=== PATIENT | female | born 1970 | race Caucasian/White ===

== ENCOUNTER → 2020-07-15 09:33 | Outpatient (BNVA) | payer OTHER, SELFPAY | PROVIDERS: PCP Internal Medicine; Visit Provider Student in an Organized Health Care Education/Training Program ==

== ENCOUNTER 2021-07-28 08:48 | Outpatient (REF) | payer MEDICARE, MEDICAID, SELFPAY ==
--- NOTE | ~2021-07-28 | XR_ITS ---
EXAMINATION: XR LUMBOSACRAL SPINE CLINICAL INFORMATION: Lower back pain. COMPARISON: None. TECHNIQUE: 3 views of the lumbosacral spine. FINDINGS: The lumbar lordosis is maintained. No acute fracture or subluxation. No loss of vertebral body height. Minimal multilevel loss of intervertebral disc height with tiny endplate osteophytes. Bilateral facet arthropathy at L5-S1. No lytic or blastic osseous lesion. Atherosclerotic calcifications. XR/XR lumbar spine 2-3V IMPRESSION: Minimal multilevel degenerative disc disease. Bilateral facet arthropathy at L5-S1.
[2021-07-28 10:55] LABS: Alanine Aminotransferase 21 U/L (0-31); Albumin Level 4.2 g/dL (3.5-5.0); Alkaline Phosphatase 76 U/L (39-117); Anion Gap 11 (12-20); Aspartate Amino Transferase 15 U/L (5-31); Bilirubin Total 0.8 mg/dL (0.0-1.0); Blood Urea Nitrogen 13 mg/dL (9-16); Calcium 9.5 mg/dL (8.4-10.2); Carbon Dioxide 27 mmol/L (22-29); Chloride 106 mmol/L (96-108); Estimated Glomerular Filt Rate > 60; Glucose Random 114 mg/dL (60-115); Potassium 4.8 mmol/L (3.3-5.1); Sodium 139 mmol/L (135-145)
== END 2021-07-28 08:49 | disposition home or self-care (01) ==
LOC: HO.XRAY 08:48
PROVIDERS: PCP Internal Medicine; Visit Provider Nurse Practitioner Family
DX: M79.7 Fibromyalgia (principal); M54.50 Low back pain, unspecified; Z79.899 Other long term (current) drug therapy
CPT/HCPCS: 36415; 72100; 80053; 99212

== ENCOUNTER → 2022-07-28 10:58 | Outpatient (BNVA) | payer MEDICARE, MEDICAID, SELFPAY | PROVIDERS: PCP Internal Medicine; Visit Provider Nurse Practitioner Family | DX: M79.7 Fibromyalgia (principal) | CPT/HCPCS: 99212 ==

== ENCOUNTER → 2022-10-29 07:27 | Outpatient (BNVA) | payer MEDICARE, MEDICAID, SELFPAY | PROVIDERS: PCP Internal Medicine; Visit Provider Nurse Practitioner Family | DX: M79.672 Pain in left foot (principal) | CPT/HCPCS: 36415; 82565; 84520; 84550; 99212 ==

== ENCOUNTER 2022-10-29 08:23 | Outpatient (REF) | payer MEDICARE, MEDICAID, SELFPAY ==
[2022-10-29 11:09] LABS: Blood Urea Nitrogen 12 mg/dL (9-16); Estimated Glomerular Filt Rate > 60; Uric Acid 6.8 mg/dL (2.4-5.7)
== END 2022-10-29 08:24 | disposition home or self-care (01) ==
LOC: HO.10HDL 08:23
PROVIDERS: Visit Provider Nurse Practitioner Family
DX: Z13.89 Encounter for screening for other disorder (principal)
CPT/HCPCS: 36415; 82565; 84520; 84550

== ENCOUNTER 2023-07-28 09:43 | Outpatient (REF) | payer MEDICARE, MEDICAID, SELFPAY ==
[2023-07-28 10:53] LABS: MANUAL DIFF FLAG NO
[2023-07-28 11:08] LABS: Basophils Absolute Auto 0.1 X10*3/uL (0.0-0.2); Basophils Percent Auto 1.6 % (0-2); Eosinophils Absolute Auto 0.1 X10*3/uL (0.0-0.4); Eosinophils Percent Auto 1.8 % (0-4); Hemoglobin 13.8 g/dl (12.0-16.0); Imm Gran Abs Auto 0.02 X10*3/uL (0.00-0.03); Imm Gran Pct Auto 0.4 % (0.0-0.4); Lymphocytes Absolute Auto 1.6 X10*3/uL (1.2-4.9); Lymphocytes Percent Auto 31.3 % (20-40); Mean Corpuscular HGB Conc 33.7 g/dl (31.0-35.0); Mean Corpuscular Hemoglobin 28.9 pg (27.0-33.0); Mean Platelet Volume 9.9 fL (9.4-12.3); Monocytes Absolute Auto 0.4 X10*3/uL (0.1-1.2); Monocytes Percent Auto 7.7 % (2-11); Neutrophils Absolute Auto 2.9 x10*3/uL (2.0-8.3); Neutrophils Percent Auto 57.2 % (45-73); Platelet Count 301 X10*3/uL (160-400); Red Blood Count 4.77 X10*6/uL (4.20-5.50); Red Cell Distribution Width 13.2 % (11.0-16.0)
[2023-07-28 11:55] LABS: Erythrocyte Sedimentation Rate 8 MM/HR (0-20)
[2023-07-28 12:11] LABS: Rheumatoid Factor < 13.0 IU/mL (<15.0)
[2023-07-28 12:13] LABS: Alanine Aminotransferase 37 U/L (0-31); Albumin Level 4.1 g/dL (3.5-5.0); Alkaline Phosphatase 71 U/L (39-117); Anion Gap 12 (12-20); Aspartate Amino Transferase 21 U/L (5-31); Bilirubin Total 0.4 mg/dL (0.0-1.0); Blood Urea Nitrogen 13 mg/dL (9-16); Calcium 8.8 mg/dL (8.4-10.2); Carbon Dioxide 26 mmol/L (22-29); Chloride 107 mmol/L (96-108); Estimated Glomerular Filt Rate > 60; Glucose Random 124 mg/dL (60-115); Potassium 3.6 mmol/L (3.3-5.1); Sodium 141 mmol/L (135-145); Total Protein 6.9 g/dL (6.5-8.0); Uric Acid 5.6 mg/dL (2.4-5.7)
[2023-08-01 15:03] LABS: Cyclic Citrullinated Peptide <16 UNITS
[2023-08-03 13:34] LABS: HLA B27 Negative (Negative)
== END 2023-07-28 09:44 | disposition home or self-care (01) ==
LOC: HO.LAB 09:43
PROVIDERS: Nurse Practitioner Family; PCP Internal Medicine; Visit Provider Nurse Practitioner Family
DX: E79.0 Hyperuricemia without signs of inflammatory arthritis and tophaceous disease (principal); M54.42 Lumbago with sciatica, left side; M54.41 Lumbago with sciatica, right side; G89.29 Other chronic pain; M79.7 Fibromyalgia
CPT/HCPCS: 36415; 80053; 84550; 85025; 85652; 86140; 86200; 86431; 86812; 99212

== ENCOUNTER 2023-07-28 09:43 | Outpatient (AMB) | payer MEDICARE, MEDICAID, SELFPAY ==
--- NOTE | 2023-07-28 09:47 | MHC.OFFVIS ---
Intake Vital Signs 07/28/23 09:48 Height 5 ft 5 in Weight 230 lb 13.184 oz BMI 38.4 BP 132/84 Blood Pressure Location Rt brachial Position Sitting Pulse 85 Pulse Source Pulse Oximeter Temp 97.3 F Temp Source Skin Pulse Oximetry (%) 98 Oxygen Delivery Method Room Air Intake Visit Reasons: fibromyalgia Intake Note: Patient last seen 10/29/22 by Pina, presents today for follow up and test results. 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 Accompanied by: Spouse Allergies amitriptyline Allergy (Intermediate, Verified 07/28/23 09:51) Diarrhea duloxetine [Cymbalta] Allergy (Intermediate, Verified 07/28/23 09:51) throat swelling gabapentin Allergy (Intermediate, Verified 07/28/23 09:51) dizziness methocarbamol Allergy (Intermediate, Verified 07/28/23 09:51) Diarrhea naproxen Allergy (Intermediate, Verified 07/28/23 09:51) diarrhea pregabalin Allergy (Intermediate, Verified 07/28/23 09:51) throat swelling tiagabine Allergy (Intermediate, Verified 07/28/23 09:51) unknown topiramate Allergy (Intermediate, Verified 07/28/23 09:51) hives venlafaxine Allergy (Verified 07/28/23 09:51) unknown animals Allergy (Intermediate, Uncoded 07/28/23 09:51) congestion bushes Allergy (Intermediate, Uncoded 07/28/23 09:51) congestion dust Allergy (Intermediate, Uncoded 07/28/23 09:51) congestion mold Allergy (Intermediate, Uncoded 07/28/23 09:51) congestion plants Allergy (Intermediate, Uncoded 07/28/23 09:51) congestion HPI HPI Comments History of Present Illness Details 51yoF presents for follow-up for fibromyalgia. Last visit was in October 2022. She presents with her who helps with Surinamese translation. Ms. Marrufo continues with all over body pain, neck pain, headaches, nausea and dizziness. She reports she has tried and failed multiple headache medications. She states she had an MRI of her neck and carotid ultrasounds for evaluation of her symptoms, per patient these tests were unremarkable. She reports that she has multiple sessions of PT for vertigo, hip pain and spine pain. She reports head to toe pain and sensitivity due to her fibromyalgia. She admits to some depression surrounding her daily pain but she is not currently following with mental health provider. She states that she tries to walk for exercise but cannot bear the pain. She manages her fibromyalgia with cyclobenzaprine. She previously tried and failed amitriptyline, duloxetine, gabapentin, methocarbamol, Lyrica, topiramate, venlafaxine, and naproxen due to various side effects. Prior Patient reports 2 weeks ago she had pain and swelling at the base of the left great toe x 4 days. She states she woke up with sharp shooting pain, and the base of the great toe was red and warm. Her son presents with pictures today on his cellphone that show erythema on the dorsal and plantar aspect of the foot around the great toe. She presented to the ER at [facility] on 10/21 and was given tylenol and motrin. She states she had an X-ray and is not sure of the results. Her discharge paperwork lists gout versus osteoarthritis as possible diagnosis. She states this is the first time she has experienced these symptoms. Her pain and swelling have since resolved. [facility] Medical History (Updated 07/28/23 @ 10:57 by [facility] Pain in joint involving multiple sites Elevated uric acid in blood Fibromyalgia Surgical History Hx of hysterectomy Family History Sister Uterus cancer HTN (hypertension) Mother HTN (hypertension) Stroke Father HTN (hypertension) Stroke Social History Household Members: Spouse Housing: House Alcohol intake: never Patient Tobacco Use Status: Never used Tobacco Review of Systems Const All systems reviewed & are unremarkable except as noted in HPI and below Physical Exam Vital Signs: Last Vital Signs Temp 97.3 F 07/28/23 09:48 Pulse 85 07/28/23 09:48 BP 132/84 07/28/23 09:48 Pulse Ox 98 07/28/23 09:48 Oxygen Delivery Method Room Air 07/28/23 09:48 BMI result Body Mass Index 38.4 APPEARANCE: Patient in no acute distress EYES: no redness, pupils equal, round and reactive to light, eyelids normal NOSE/SINUS: Airflow through both nares, no nasal discharge, no bleeding THROAT: Oral mucosa moist, no ulcerations HEART: Regular rhythm, S1-S2 heard, no murmurs, rubs or gallops. LUNG: Clear to auscultation, respiratory rate regular and non-labored. EXTREMITIES: No edema, no calf tenderness, normal peripheral pulses. NEURO: Oriented and alert x3. No focal weakness. Gait normal. SKIN: No inflammatory or neoplastic lesions. Normal color and turgor JOINT EXAM:? Lumbar spine: Full range of motion, moderate tenderness to palpation over the lumbar spine. Hands: Normal pain-free range of motion without tenderness, swelling, increased warmth or erythema. Able to make a full fist and has a good senior sql server developer strength. Wrists: Normal pain-free range of motion without tenderness, swelling, increased warmth or erythema. Elbows: Normal pain-free range of motion without tenderness, swelling, increased warmth or erythema. Shoulders: Full range of motion. No tenderness, weakness, swelling, increased warmth or erythema. Hip bursa: Severe tenderness bilaterally to bursa and buttocks Knees: Normal pain-free range of motion without tenderness, swelling, increased warmth or erythema.? There is no effusion or crepitation Ankles: Normal pain-free range of motion without tenderness, swelling, increased warmth or erythema. Feet: LEFT: Normal pain-free range of motion without swelling, increased warmth or erythema. Slight tenderness reported to palpation of the 1st MTP. RIGHT: Normal pain-free range of motion without tenderness, swelling, increased warmth or erythema. Tender points: Tenderness to digital palpation at the occiput, trapezius, second rib. No tenderness to palpation of the lateral epicondyle, knees, greater trochanter and gluteal area bilaterally. Results Reviewed Results Reviewed: 10/29/2022 Uric Acid 6.8 07/28/2021 EXAMINATION: XR LUMBOSACRAL SPINE CLINICAL INFORMATION: Lower back pain. COMPARISON: None. TECHNIQUE: 3 views of the lumbosacral spine. FINDINGS: The lumbar lordosis is maintained. No acute fracture or subluxation. No loss of vertebral body height. Minimal multilevel loss of intervertebral disc height with tiny endplate osteophytes. Bilateral facet arthropathy at L5-S1. No lytic or blastic osseous lesion. Atherosclerotic calcifications. XR/XR lumbar spine 2-3V IMPRESSION: Minimal multilevel degenerative disc disease. Bilateral facet arthropathy at L5-S1. Assessment & Plan Assessment & Plan (1) Chronic back pain: Code(s): M54.9 - Dorsalgia, unspecified; G89.29 - Other chronic pain Qualifiers: Back pain laterality: bilateral Back pain location: low back pain Sciatica laterality: bilateral sciatica Sciatica presence: with sciatica Qualified Code(s): M54.42 - Lumbago with sciatica, left side; M54.41 - Lumbago with sciatica, right side; G89.29 - Other chronic pain (2) Pain in joint involving multiple sites: Code(s): M25.50 - Pain in unspecified joint (3) Elevated uric acid in blood: Code(s): E79.0 - Hyperuricemia without signs of inflammatory arthritis and tophaceous disease (4) Fibromyalgia: Code(s): M79.7 - Fibromyalgia Plan #Bilateral Hip Bursitis: This also interrupts her sleep. She has had previous injections but did not find them helpful. She is currently doing PT. She will consider to call after completing PT for an injection. I encouraged patient that she should continue, at home, the exercises shown at PT . #Elevated Uric acid: At last visit in 10/2022, patient was evaluated for Gout given onset of left foot pain, erythema and warmth at the 1st MTP. The symptoms have resolved and she denies any recurrence since. No evidence of active gout on exam at this time. Her Uric acid was elevated at 6.8. I will recheck to see if it has normalized. 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 Treatment is initiated after 2 gout flares in a 12 month period. She remains on HCTZ. Patient to contact the clinic if she has return of similar joint pain, swelling, erythema or warmth. #FM/Low back Pain: Ms. Marrufo, 52-year-old female patient followed in clinic for fibromyalgia. Serology per previous rheumatology notes from 2017: SILAS, rheumatoid factor, CCP, hepatitis panel were negative. CRP and sed rate normal, TSH normal, complements normal, aldolase normal (these labs are not available to me to review today). Nonetheless I will recheck her inflammatory markers and HLAB27 today. While there is mild OA to the lumbar, it does not match the severity of the pain she expresses and the tenderness experienced on palpation. Previous cortisone injections were also not helpful. On exam patient has fibromyalgia tender points and high sensitivity to touch. She continues to manage her symptoms with cyclobenzaprine which she finds helpful. She previously failed multiple medications as above. 40 minutes spent reviewing chart, evaluating patient, discussing treatment options and documenting. Orders: Orders Erythrocyte Sedimentation Rate 07/28/23 E79.0 - Hyperuricemia without signs of inflammatory arthritis and tophaceous disease HLA B27 07/28/23 M54.9 - Dorsalgia, unspecified, G89.29 - Other chronic pain Cyclic Citrullinated Peptide 07/28/23 M25.50 - Pain in unspecified joint Complete Blood Count Auto Diff 07/28/23 E79.0 - Hyperuricemia without signs of inflammatory arthritis and tophaceous disease Comprehensive Met. Panel 07/28/23 E79.0 - Hyperuricemia without signs of inflammatory arthritis and tophaceous disease C Reactive Protein 07/28/23 E79.0 - Hyperuricemia without signs of inflammatory arthritis and tophaceous disease Uric Acid 07/28/23 E79.0 - Hyperuricemia without signs of inflammatory arthritis and tophaceous disease Rheumatoid Factor 07/28/23 M25.50 - Pain in unspecified joint Coding Level of Care Code Est Pt Level 4 (90806) Diagnoses Chronic bilateral low back pain with bilateral sciatica M54.42; M54.41; G89.29 Back pain laterality: bilateral Back pain location: low back pain Sciatica laterality: bilateral sciatica Sciatica presence: with sciatica Pain in joint involving multiple sites M25.50 Elevated uric acid in blood E79.0 Fibromyalgia M79.7
[2023-07-28 09:48] VITALS: BP 132/84; PULSE 85; TEMP 36.3; O2SAT 98; BMI 38.4
== END 2023-07-28 10:27 | disposition home or self-care (01) ==
PROVIDERS: PCP Internal Medicine; Visit Provider Nurse Practitioner Family
DX: M54.42 Lumbago with sciatica, left side (principal); M54.41 Lumbago with sciatica, right side; G89.29 Other chronic pain; M25.50 Pain in unspecified joint; E79.0 Hyperuricemia without signs of inflammatory arthritis and tophaceous disease; M79.7 Fibromyalgia
CPT/HCPCS: 99214

== ENCOUNTER 2024-02-15 14:24 | Outpatient (AMB) | payer MEDICARE, MEDICAID, SELFPAY ==
--- NOTE | 2024-02-15 14:29 | MHC.OFFVIS ---
Vital Signs 02/15/24 14:30 Height 5 ft 5 in Weight 235 lb 0.204 oz BMI 39.1 BP 130/78 Blood Pressure Location Lt brachial Position Sitting Pulse 77 Pulse Source Pulse Oximeter Intake Visit Reasons: Multiple Joint Pain/Uric Acid Elevated Intake Note: Patient last seen 07/28/23, presents today for follow up on Fibromyalgia and test results. Accompanied by: Spouse Allergies amitriptyline Allergy (Intermediate, Verified 02/15/24 14:31) Diarrhea duloxetine [Cymbalta] Allergy (Intermediate, Verified 02/15/24 14:31) throat swelling gabapentin Allergy (Intermediate, Verified 02/15/24 14:31) dizziness methocarbamol Allergy (Intermediate, Verified 02/15/24 14:31) Diarrhea naproxen Allergy (Intermediate, Verified 02/15/24 14:31) diarrhea pregabalin Allergy (Intermediate, Verified 02/15/24 14:31) throat swelling tiagabine Allergy (Intermediate, Verified 02/15/24 14:31) unknown topiramate Allergy (Intermediate, Verified 02/15/24 14:31) hives venlafaxine Allergy (Verified 02/15/24 14:31) unknown animals Allergy (Intermediate, Uncoded 02/15/24 14:31) congestion bushes Allergy (Intermediate, Uncoded 02/15/24 14:31) congestion dust Allergy (Intermediate, Uncoded 02/15/24 14:31) congestion mold Allergy (Intermediate, Uncoded 02/15/24 14:31) congestion plants Allergy (Intermediate, Uncoded 02/15/24 14:31) congestion Medication List - Last Reconciled 02/15/24 by Nicholas Mcgee MD amlodipine 10 mg PO DAILY ascorbic [id number] 1,000 mg (Emergen-C) ea PO DAILY atogepant (Qulipta) 60 mg PO DAILY azelaic acid 15% (Finacea) 0 appl topical cyclobenzaprine 10 mg PO BEDTIME diphenhydramine HCl (Randa-[place] Plus Allergy) 25 mg PO TID PRN doxycycline monohydrate 100 mg PO DAILY ibuprofen 600 mg PO Q8H PRN lactobacillus comb no.10 (Probiotic) 20,000 mmu cells PO DAILY lidocaine 5% patches topical magnesium oxide 400 mg PO DAILY metformin 1,000 mg PO BID metformin ER 500 mg PO DAILY mcmhviuarw-nmbmeyqkq-lxgegbwde 40-10-25 mg 1 tab PO DAILY pantoprazole 40 mg PO BID rimegepant (Nurtec ODT) 75 mg PO Q OTHER DAY rizatriptan mg PO rosuvastatin 10 mg PO BEDTIME triamcinolone acetonide (Nasacort) 2 sprays intranasal DAILY HPI Comments Details: This is a 53-year-old female with fibromyalgia who returns for follow-up with her . She continues to complain of diffuse pain. She states that she was admitted to the hospital with dizziness. Per workup was negative [facility] Medical History (Updated 07/28/23 @ 10:57 [facility] Pain in joint involving multiple sites Elevated uric acid in blood Fibromyalgia Surgical History Hx of hysterectomy Family History Sister Uterus cancer HTN (hypertension) Mother HTN (hypertension) Stroke Father HTN (hypertension) Stroke Social History Household Members: Spouse Housing: House Alcohol intake: never Patient Tobacco Use Status: Never used Tobacco Review of Systems ENT Reports dizziness Musc Reports myalgias and Reports arthralgias Neuro Reports dizziness Physical Exam Vital Signs: Last Vital Signs Pulse 77 02/15/24 14:30 BP 130/78 02/15/24 14:30 BMI result Body Mass Index 39.1 Const General: cooperative, healthy appearing and comfortable Nutritional Appearance: obese morbidly obese Orientation/consciousness: patient oriented x3 Limitations: no limitations HEENT Mouth: moist mucous membranes Resp Effort & Inspection: normal respiratory effort and able to speak in complete sentences Auscultation: clear to auscultation bilaterally Cardio Rate: regular rate Rhythm: regular rhythm Skin General skin exam: no rashes or lesions noted Neuro General: patient oriented x3 Extrem Other: No active synovitis Bilateral bunions Few fibromyalgia tender points normal nailfold capillaroscopy Assessment & Plan Assessment & Plan (1) Fibromyalgia: Code(s): M79.7 - Fibromyalgia Category: Medical Plan: Discussed management of fibromyalgia with patient. Is a noninflammatory, non-autoimmune central afferent processing disorder leading to a diffuse pain syndrome. I suggested that patient try to address her underlying psychiatric issues, anxiety/depression/OCD. I suggested evaluation by a therapist and/or a psychiatrist. Try to follow sleep hygiene practices. Consider a referral for a sleep study by PCP. Patient would benefit from increased physical activity, either through formal physical therapy or by joining a gym. Advised patient that she should start activity slowly and increase as tolerated. Consider low-impact exercises such as walking, swimming, aqua therapy stretching, yoga. Follow-up with PCP Plan I spent 17 minutes reviewing patient's chart, evaluating patient, , counseling patient & and documenting in the chart Coding Level of Care Code Est Pt Level 3 (82206) Diagnoses Fibromyalgia M79.7
[2024-02-15 14:30] VITALS: BP 130/78; PULSE 77; BMI 39.1
== END 2024-02-15 14:56 | disposition home or self-care (01) ==
PROVIDERS: PCP Internal Medicine; Visit Provider Student in an Organized Health Care Education/Training Program
DX: M79.7 Fibromyalgia (principal)
CPT/HCPCS: 99213

== ENCOUNTER → 2024-02-15 14:24 | Outpatient (BNVA) | payer MEDICARE, MEDICAID, SELFPAY | PROVIDERS: PCP Internal Medicine; Visit Provider Student in an Organized Health Care Education/Training Program | DX: M79.7 Fibromyalgia (principal); M25.50 Pain in unspecified joint | CPT/HCPCS: 99212 ==